=== PATIENT | female | born 1945 | race Caucasian/White ===

== ENCOUNTER 2018-02-22 15:22 | Observation (INO) | payer OTHER ==
[2018-02-22 16:30] LABS: BASO % 0.6 % (0-2.0); HEMATOCRIT 40.6 % (32.4-45.2); HEMOGLOBIN 13.6 GM/dL (10.7-15.3); LYMPH % 18.9 % (8-40); MCH 30.4 pg (25.7-33.7); MCHC 33.5 g/dl (32.0-36.0); MEAN PLT VOLUME 8.3 fl (7.5-11.1); MONO % 5.4 % (3.8-10.2); NEUT % 72.1 % (42.8-82.8); PLATELET COUNT 268 K/MM3 (134-434); RBC 4.46 M/mm3 (3.60-5.2); WHITE BLOOD COUNT 8.6 K/mm3 (4.0-10.0)
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
[2018-02-22 16:42] LABS: INR 0.99 (0.82-1.09); PROTHROMBIN TIME (PATIENT) 11.2 SEC (9.7-13.0)
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
[2018-02-22 16:53] LABS: ALBUMIN 3.7 g/dl (3.4-5.0); ALK PHOS 82 U/L (45-117); ANION GAP 13 (8-16); BILIRUBIN,TOTAL 0.7 mg/dL (0.2-1.0); BLOOD UREA NITROGEN 17 mg/dL (7-18); CALCIUM 9.2 mg/dL (8.5-10.1); CHLORIDE 108 mmol/L (98-107); CO2 19 mmol/L (21-32); CREATININE 0.7 mg/dL (0.55-1.02); GLUCOSE,RANDOM 105 mg/dL (74-106); SGPT/ALT 44 U/L (12-78); SODIUM 140 mmol/L (136-145); TOT PROT 7.6 g/dl (6.4-8.2)
[2018-02-22 16:57] LABS: MAGNESIUM 2.2 mg/dL (1.8-2.4); POTASSIUM 3.9 mmol/L (3.5-5.1); SGOT/AST 33 U/L (15-37)
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
[2018-02-22] MEDS ORDERED: ACETAMINOPHEN 325 MG TABLET (FP) PO PRN (20:15)
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
[2018-02-22] MEDS: amLODIPine BESYLATE 5 MG TABLET (FP) PO SCH (21:15)
[2018-02-22] MEDS ORDERED: amLODIPine BESYLATE 5 MG TABLET (FP) ONE (21:28)
[2018-02-22] MEDS ORDERED: LISINOPRIL 20 MG TABLET (FP) ONE (21:29)
[2018-02-23] MEDS: LISINOPRIL 20 MG TABLET (FP) PO SCH ×3 (00:26→21:59)
[2018-02-23] MEDS ORDERED: MELATONIN 5 MG TABLETS PO ONE (00:30)
[2018-02-23 01:42] LABS: URINE APPEARANCE CLEAR; URINE BILIRUBIN NEGATIVE (<2.0 mg/dL); URINE COLOR LTYELLOW; URINE GLUCOSE (UA) NEGATIVE (NEGATIVE); URINE KETONE NEGATIVE (NEGATIVE); URINE LEUK ESTERASE NEGATIVE (NEGATIVE); URINE NITRITE NEGATIVE (NEGATIVE); URINE PROTEIN NEGATIVE (NEGATIVE); URINE UROBILINOGEN NEGATIVE mg/dL (0.2-1.0)
[2018-02-23 02:21] LABS: COCAINE, UR NEGATIVE ng/ml (CUTOFF=300); METHADONE, UR NEGATIVE ng/ml (CUTOFF=300); OPIATES, URI NEGATIVE ng/ml (CUTOFF=300); PHENCYCLIDINE,URINE NEGATIVE ng/ml (CUTOFF=25); URINE AMPHETAMINES NEGATIVE ng/ml (CUTOFF=500); URINE BARBITURATES NEGATIVE ng/ml (CUTOFF=200); URINE BENZODIAZEPINES NEGATIVE ng/ml (CUTOFF=200)
[2018-02-23 06:41] LABS: BASO % 0.7 % (0-2.0); EOS % 3.3 % (0-4.5); HEMATOCRIT 36.7 % (32.4-45.2); HEMOGLOBIN 12.7 GM/dL (10.7-15.3); LYMPH % 27.1 % (8-40); MCH 31.2 pg (25.7-33.7); MCHC 34.6 g/dl (32.0-36.0); MONO % 6.1 % (3.8-10.2); NEUT % 62.8 % (42.8-82.8); PLATELET COUNT 262 K/MM3 (134-434); RBC 4.07 M/mm3 (3.60-5.2); RDW 13.6 % (11.6-15.6); WHITE BLOOD COUNT 7.4 K/mm3 (4.0-10.0)
[2018-02-23 07:16] LABS: ALBUMIN 3.5 g/dl (3.4-5.0); ANION GAP 9 (8-16); BILIRUBIN,TOTAL 1.1 mg/dL (0.2-1.0); BLOOD UREA NITROGEN 14 mg/dL (7-18); CALCIUM 9.1 mg/dL (8.5-10.1); CHLORIDE 106 mmol/L (98-107); CO2 25 mmol/L (21-32); CREATININE 0.6 mg/dL (0.55-1.02); GLUCOSE,RANDOM 92 mg/dL (74-106); POTASSIUM 4.1 mmol/L (3.5-5.1); SGOT/AST 26 U/L (15-37); SGPT/ALT 39 U/L (12-78); SODIUM 140 mmol/L (136-145); TOT PROT 7.2 g/dl (6.4-8.2)
[2018-02-23 07:17] LABS: ALK PHOS 77 U/L (45-117)
[2018-02-23 07:21] LABS: CHOLESTEROL 189 mg/dL (50-200); HDL CHOLESTEROL 65 mg/dL (40-60); TRIGLYCERIDES 104 mg/dL (35-160)
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
[2018-02-23] MEDS: amLODIPine BESYLATE 5 MG TABLET (FP) PO SCH (10:02)
[2018-02-23] MEDS: ENOXAPARIN NA (PORCINE) 40 MG/0.4 ML DISP.SYRIN SQ SCH (10:03)
[2018-02-23] MEDS ORDERED: LISINOPRIL 20 MG TABLET (FP) ONE (10:41)
[2018-02-23] MEDS ORDERED: amLODIPine BESYLATE 5 MG TABLET (FP) ONE (10:41)
[2018-02-23] MEDS ORDERED: ENOXAPARIN NA (PORCINE) 40 MG/0.4 ML DISP.SYRIN SQ ONE (10:42)
--- NOTE | 2018-02-23 12:32 | EKG ---
Test Reason : Blood Pressure : / mmHG Vent. Rate : 068 BPM Atrial Rate : 068 BPM P-R Int : 198 ms QRS Dur : 090 ms QT Int : 440 ms P-R-T Axes : 050 -13 065 degrees QTc Int : 467 ms NORMAL SINUS RHYTHM NONSPECIFIC T WAVE ABNORMALITY ABNORMAL ECG NO PREVIOUS ECGS AVAILABLE Confirmed by PRISCILA FELDER, MERRY ([id number]) on 02/23/2018 12:32:05 PM Referred By: Confirmed By:MERRY FRANCOIS MD
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
[2018-02-23 23:07] VITALS: BMI 34.5
[2018-02-24 05:58] VITALS: BP 106/64
[2018-02-24 07:38] VITALS: PULSE 16; TEMP 98.1
[2018-02-24] MEDS: ENOXAPARIN NA (PORCINE) 40 MG/0.4 ML DISP.SYRIN SQ SCH (09:21)
[2018-02-24] MEDS: LISINOPRIL 20 MG TABLET (FP) PO SCH (09:21)
[2018-02-24] MEDS: amLODIPine BESYLATE 5 MG TABLET (FP) PO SCH (09:21)
[2018-02-24] MEDS ORDERED: ASPIRIN COATED 81 MG TABLET.EC PO SCH (10:00)
--- NOTE | 2018-02-24 10:11 | PN ---
Progress Note, Physician Chief Complaint: Events noted Not in distress History of Present Illness: Patient was seen and examined. Awake and alert. Chart was reviewed Denies chest pain, SOB or palpitations Prior cardiac records are recorded on Resident note. Patient is followed in [place] where she resides - Current Medication List Current Medications: Active Medications Acetaminophen (Tylenol -) 650 mg PO Q4H PRN PRN Reason: PAIN LEVEL 1 - 3 Amlodipine Besylate (Norvasc -) 5 mg PO DAILY [facility] Last Admin: 02/24/18 09:21 Dose: 5 mg Aspirin (Ecotrin -) 81 mg PO DAILY [facility] Last Admin: 02/24/18 09:21 Dose: 81 mg Enoxaparin Sodium (Lovenox -) 40 mg SQ DAILY [facility] Last Admin: 02/24/18 09:21 Dose: 40 mg Lisinopril (Prinivil) 20 mg PO BID [facility] Last Admin: 02/24/18 09:21 Dose: 20 mg - Objective Vital Signs: Vital Signs Temperature 98.1 F 02/24/18 07:32 Pulse Rate 16 L 02/24/18 07:32 Respiratory Rate 61 H 02/24/18 07:38 Blood Pressure 106/64 02/24/18 07:32 O2 Sat by Pulse Oximetry (%) 95 02/23/18 19:00 Eyes: Yes: Conjunctiva Clear, PERRL HENT: Yes: Atraumatic Neck: Yes: Supple Cardiovascular: Yes: Regular Rate and Rhythm, S1, S2 Respiratory: Yes: CTA Bilaterally Gastrointestinal: Yes: Normal Bowel Sounds, Soft. No: Tenderness Musculoskeletal: Yes: WNL Extremities: Yes: WNL Edema: No Peripheral Pulses WNL: Yes Additional Findings/Remarks: - Review of Systems Constitutional: denies: Chills, Fever Cardiovascular: denies Chest Pain, Shortness of Breath. denies: Palpitations Respiratory: denies SOB, SOB on Exertion. denies: Cough, Hemoptysis, Orthopnea , PND Gastrointestinal: denies: Abdominal Pain, Constipation, Diarrhea, Melena, Nausea , Rectal Bleeding, Vomiting Musculoskeletal: denies Joint Pain. denies: Back Pain Neurological: denies Unsteady Gait, Weakness. denies: Dizziness, Headache, Seizure, Syncope Labs: CBC, BMP 02/23/18 06:15 02/23/18 06:15 Problem List - Problems (1) Hyperlipidemia Code(s): E78.5 - HYPERLIPIDEMIA, UNSPECIFIED Qualifiers: Hyperlipidemia type: pure hypercholesterolemia Qualified Code(s): E78.00 - Pure hypercholesterolemia, unspecified; E78.0 - Pure hypercholesterolemia (2) Hypertension Code(s): I10 - ESSENTIAL (PRIMARY) HYPERTENSION Qualifiers: Hypertension type: essential hypertension Qualified Code(s): I10 - Essential (primary) hypertension (3) Syncope Code(s): R55 - SYNCOPE AND COLLAPSE Qualifiers: Syncope type: vasovagal syncope Qualified Code(s): R55 - Syncope and collapse Assessment/Plan 1. Syncope with prodrome in context of retching - vasovagal 2. HTN 3. Hyperlipidemia PLAN: 1. Monitor is unrevealing. Echocardiography result is as noted 2. Follow up brain MRI - official report to follow 3. Continue Lisinopril 20 bid, Norvac 5 qd and ASA 81 qd If above negative, may discharge home cardiac standpoint Aidan Chapa MD
--- NOTE | 2018-02-24 11:36 | DS ---
Physical Exam: SUBJECTIVE: Patient seen and examined OBJECTIVE: Vital Signs Period Temp Pulse Resp BP Sys/Harman Pulse Ox Last 24 Hr 97.8 F-98.4 F 16-63 20-61 106-126/64-79 95-97 PHYSICAL EXAM GENERAL: The patient is awake, alert, and fully oriented, in no acute distress. HEAD: Normal with no signs of trauma. EYES: PERRL, extraocular movements intact, sclera anicteric, conjunctiva clear. ENT: Ears normal, nares patent, oropharynx clear without exudates, moist mucous membranes. NECK: Trachea midline, full range of motion, supple. LUNGS: Breath sounds equal, clear to auscultation bilaterally, no wheezes, no crackles, no accessory muscle use. HEART: Regular rate and rhythm, S1, S2 without murmur, rub or gallop. ABDOMEN: Soft, nontender, nondistended, normoactive bowel sounds, no guarding, no rebound, no hepatosplenomegaly, no masses. EXTREMITIES: 2+ pulses, warm, well-perfused, no edema. NEUROLOGICAL: Cranial nerves II through XII grossly intact. Normal speech, gait not observed. PSYCH: Normal mood, normal affect. SKIN: Warm, dry, normal turgor, no rashes or lesions noted. LABS HOSPITAL COURSE: Date of Admission:02/22/18 Date of Discharge: 02/24/18 Discharge Summary Reason For Visit: SYNCOPE Current Active Problems Syncope (Acute) Hyperlipidemia (Chronic) Hypertension (Chronic) Condition: Good - Instructions Diet, Activity, Other Instructions: You were seen here due to your fainting episodes. We ruled out anything that could be emergent and most likely this was caused by vasovagal reaction Your MRI showed chronic changes from your high blood pressure only. MEDICATIONS: You will need to take a baby aspirin daily (Aspirin 81mg) You should also take Lipitor 40mg Daily as your cholesterol panel was slightly elevated --This medication has been sent to your pharmacy You are going to be prescribed new high blood pressure medications: Norvasc (aka amlodipine) 5mg DAILY Lisinopril 20mg TWICE DAILY --These were sent to your pharmacy Please stop your previous blood pressure medications and use these only FOLLOW-UPs: You should follow-up with a [employer], Dr. Vivar or another of your choosing, for an event monitor to make sure your heart rate is normal if you experience these episodes again You should also follow-up with Dr. Lew about what has happened here as well. --We recommend you not to drive and you will need to be cleared by Dr. eLw before doing so Referrals: America Lew [Other] - 2 Weeks Dipak Vivar [Other] (Event monitor; possible stress test) Disposition: HOME - Home Medications Comprehensive Discharge Medication List: Ambulatory Orders Amlodipine Besylate [Norvasc -] 5 mg PO DAILY #30 tablet 02/24/18 Aspirin Coated [Ecotrin -] 81 mg PO DAILY #30 tablet.ec 02/24/18 Atorvastatin Ca [Lipitor] 40 mg PO HS #30 tablet 02/24/18 Lisinopril [Prinivil] 20 mg PO BID #60 tablet 02/24/18
--- NOTE | 2018-02-24 14:51 | PN ---
Teaching Attending Note Name of Resident: Leroy Pate ATTENDING PHYSICIAN STATEMENT I saw and evaluated the patient. I reviewed the resident's note and discussed the case with the resident. I agree with the resident's findings and plan as documented. SUBJECTIVE: Patient is comfortable with no new event. No new symptoms. OBJECTIVE: Vital Signs Temperature 98.1 F 02/24/18 07:32 Pulse Rate 16 L 02/24/18 07:32 Respiratory Rate 61 H 02/24/18 07:38 Blood Pressure 106/64 02/24/18 07:32 O2 Sat by Pulse Oximetry (%) 95 02/23/18 19:00 CBCD WBC 7.4 K/mm3 (4.0-10.0) 02/23/18 06:15 RBC 4.07 M/mm3 (3.60-5.2) 02/23/18 06:15 Hgb 12.7 GM/dL (10.7-15.3) 02/23/18 06:15 Hct 36.7 % (32.4-45.2) 02/23/18 06:15 MCV 90.0 fl (80-96) 02/23/18 06:15 MCHC 34.6 g/dl (32.0-36.0) 02/23/18 06:15 RDW 13.6 % (11.6-15.6) 02/23/18 06:15 Plt Count 262 K/MM3 (134-434) 02/23/18 06:15 MPV 8.0 fl (7.5-11.1) 02/23/18 06:15 CMP Sodium 140 mmol/L (136-145) 02/23/18 06:15 Potassium 4.1 mmol/L (3.5-5.1) 02/23/18 06:15 Chloride 106 mmol/L (98-107) 02/23/18 06:15 Carbon Dioxide 25 mmol/L (21-32) 02/23/18 06:15 Anion Gap 9 (8-16) 02/23/18 06:15 BUN 14 mg/dL (7-18) 02/23/18 06:15 Creatinine 0.6 mg/dL (0.55-1.02) 02/23/18 06:15 Creat Clearance w eGFR > 60 (>60) 02/23/18 06:15 Random Glucose 92 mg/dL (74-106) 02/23/18 06:15 Calcium 9.1 mg/dL (8.5-10.1) 02/23/18 06:15 Total Bilirubin 1.1 mg/dL (0.2-1.0) H 02/23/18 06:15 AST 26 U/L (15-37) 02/23/18 06:15 ALT 39 U/L (12-78) 02/23/18 06:15 Alkaline Phosphatase 77 U/L (45-117) 02/23/18 06:15 Total Protein 7.2 g/dl (6.4-8.2) 02/23/18 06:15 Albumin 3.5 g/dl (3.4-5.0) 02/23/18 06:15 CARDIAC ENZYMES Creatine Kinase 152 IU/L (26-192) 02/22/18 16:20 Troponin I < 0.02 ng/ml (0.00-0.05) 02/22/18 16:20 Home Medications Medication Instructions Recorded Amlodipine Besylate [Norvasc -] 5 mg PO DAILY #30 tablet 02/24/18 Aspirin Coated [Ecotrin -] 81 mg PO DAILY #30 tablet.ec 02/24/18 Atorvastatin Ca [Lipitor] 40 mg PO HS #30 tablet 02/24/18 Lisinopril [Prinivil] 20 mg PO BID #60 tablet 02/24/18 PE: per resident's note MRI of the brain: IMPRESSION: No infarct is identified. There is no discrete mass lesion. Moderate periventricular and subcortical hyperintensity is seen probably on the basis of chronic microvascular ischemic changes given the patient's chronologic age. Two small left thalamic and left parietal hypointense foci are noted probably representing chronic microbleeds. Impression: Mild intimal thickening of the common carotid bifurcation, bilaterally without evidence of hemodynamically significant stenosis . ASSESSMENT AND PLAN: Patient is a 73yo Female with h/o HTN and HLD presenting with syncopal episode # Acute Syncope most likely vasovagal due to esophageal spasm. MRI is negative except chronic vascular changes, ECHo report requested from 's office positive for Mild concentric LV hypertrophy with EF estimated at 60%, Normal diastolic filling Mild MR with NL mitral valve, Trace TR. Trileaflet aortic valve w/o evidence of stenosis or regurgitation. Carotid dopplers negative for significant stenosis. MRI brain as above , carotid is negative. Follow with neurology for further w/u. In terms of driving patient was recommended not to drive until is cleared by her neurologist or cleared by her lap machine tender. since MRI was reported chronic microvascular ischemic changes : added lipitor and asa to her regimen. and good blood pressure control was recommend with close follow up with her primary care /tourist escort. also stress test was recommended for her. she understands. # HTN controlled on Lisinopril 20mg BID and Norvasc 5mg qdaily
== END 2018-02-24 12:02 | disposition home or self-care (01) ==
LOC: JER 15:22 → JERBED 18:30 → J4W 02-23 19:19
PROVIDERS: ADMIT Internal Medicine; ATTEND Internal Medicine
PROC: 3E013GC Introduction of Other Therapeutic Substance into Subcutaneous Tissue, Percutaneous Approach (ICD-10-PCS; principal; 2018-02-22)
DX: R55 Syncope and collapse (principal); I10 Essential (primary) hypertension; E78.5 Hyperlipidemia, unspecified; E66.9 Obesity, unspecified; Z68.34 Body mass index [BMI] 34.0-34.9, adult
CPT/HCPCS: 36415; 70552-TC; 71045-TC-FY; 80053; 80061; 80307; 81003; 82550; 82553; 83721; 83735; 84484; 85025; 85610; 93005; 93010; 93880-TC; 96372; 99285-25; G0378